=== PATIENT | female | born 1965 | race Caucasian/White ===

== ENCOUNTER 2020-04-15 13:53 | Observation (INO) ==
--- NOTE | 2020-04-15 15:08 | XRay Report ---
XR chest 1V portable CLINICAL HISTORY: hypertension COMPARISON STUDY: No previous studies for comparison. FINDINGS: The cardiac and mediastinal contours are normal. There is no evidence of focal pulmonary co nsolidation. There is no evidence of failure. No pleural effusions are visualized.[ IMPRESSION: No active disease in the chest. ACT 112: Negative or not required by law. Electronically signed by: Alex Copeland M.D. 04/15/2020 3:07 PM
[2020-04-15 15:13] LABS: Partial Thromboplastin Ratio 0.9; Partial Thromboplastin Time 25.1 Seconds (21.0-31.0); Prothrombin Time 10.2 Seconds (9.0-12.0)
[2020-04-15 15:16] LABS: Basophils # (auto) 0.07 K/uL (0-0.2); Basophils % (auto) 1.1 %; Eosinophils # (auto) 0.15 K/uL (0-0.5); Eosinophils % (auto) 2.5 %; Hematocrit (blood only) 41.6 % (37-47); Hemoglobin 14.4 g/dL (12.0-16.0); Immature Granulocytes # (auto) 0.01 K/uL (0.00-0.02); Immature Granulocytes % (auto) 0.2 %; Lymphocytes # (auto) 1.41 K/uL (1.2-3.4); Lymphocytes % (auto) 23.1 %; Mean Corpuscular Hemoglobin 34.6 pg (25-34); Mean Corpuscular Hgb Conc 34.6 g/dL (32-36); Mean Platelet Volume 10.1 fL (7.4-10.4); Monocytes # (auto) 0.57 K/uL (0.11-0.59); Monocytes % (auto) 9.3 %; Neutrophils % (auto) 63.8 %; Platelet Count 200 K/uL (130-400); RDW Coefficient of Variation 11.9 % (11.5-14.5); RDW Standard Deviation 43.6 fL (36.4-46.3); Red Blood Count 4.16 M/uL (4.2-5.4); White Blood Count 6.11 K/uL (4.8-10.8)
[2020-04-15 15:27] LABS: Alanine Aminotransferase 25 U/L (12-78); Albumin Level 3.9 gm/dl (3.4-5.0); Aspartate Aminotransferase 12 U/L (15-37); BUN Creatinine Ratio 13.4 (10-20); Blood Urea Nitrogen 12 mg/dl (7-18); Calcium 9.3 mg/dl (8.5-10.1); Carbon Dioxide 30 mmol/L (21-32); Chloride 103 mmol/L (98-107); Creatinine Clr Calc Pharmacy 83.3 ml/min; Est GFR (African American) 82.4; Est GFR (Non-African American) 71.1; Glucose 95 mg/dl (70-99); Potassium 3.8 mmol/L (3.5-5.1); Sodium 137 mmol/L (136-145)
[2020-04-15 15:32] LABS: Alkaline Phosphatase 87 U/L (45-117); Bilirubin,Total 0.4 mg/dl (0.2-1); Globulin 3.8 gm/dl (2.5-4.0); Total Protein 7.7 gm/dl (6.4-8.2); Troponin I < 0.015 ng/ml (0-0.045)
[2020-04-15] MEDS ORDERED: NITROGLYCERIN 2% OINTMENT 30GM TUBE EXT STA (15:41)
[2020-04-15] MEDS ORDERED: ASPIRIN 81 MG CHEW PO STA (15:41)
--- NOTE | 2020-04-15 15:44 | Emergency Department Note ---
History of Present Illness General Chief complaint: Hypertension Stated complaint: ELEVATED BLOOD PRESSURE Time Seen by Provider: 04/15/20 15:35 Source: patient History of Present Illness Provider complaint: Chest tightness Onset (ago): hour(s) Location: chest Radiation: non-radiation Severity: mild Pain Consistency: + constant Current Pain Intensity: 1 Quality: + other (Tightness) Exacerbated By: + none Associated symptoms: no cough, no diaphoresis, no fever/chills, no headaches, no nausea/vomiting, no shortness of breath and no syncope This is a 54-year-old female presents with chest tightness starting around noon today. The patient states that it is a tightness in the middle of her chest. She currently rates it a 1 out of 10 in severity. It is been constant since noon. She does state that she exercises and she has never had this chest tightness in the past. She was at her therapist's office and they also noted that her blood pressure was very high. She does state that she has a history of whitecoat hypertension but has noted that when she takes her blood pressures at home they tend to be on the high side with a systolic in the 130s. It sometimes goes up to 160. She denies any associated headache, fever, cough or cold symptoms, shortness of breath, diaphoresis, abdominal pain, vomiting or diarrhea. She is not having any symptoms consistent with COVID-19 but states that she had preop testing recently as she is having a hysterectomy. She does have a family history of heart disease and her brother at age 60 of a heart attack. Her father has a history of heart disease as well. Home Medications Home Medications Medication Instructions Recorded Confirmed Type multivitamin 1 tab PO QAM 04/11/19 04/15/20 History betamethasone dipropionate 0.05 % 1 appln TOP BID #45 gm 02/25/20 04/15/20 Rx topical cream tretinoin 1 appln TOP Q OTHER DAY PRN 04/15/20 04/15/20 History vortioxetine [Trintellix] 5 mg PO QAM 04/15/20 04/15/20 History Allergies Allergy/AdvReac Type Severity Reaction Status Date / Time No Known Allergies Allergy Verified 04/15/20 17:04 Past Med/Surg History Medical History Anemia Stable Depression In the process of getting under control Ovarian cyst White coat syndrome with diagnosis of hypertension Surgical History History of hand surgery x3, cyst> 2 TO LEFT, 1 TO RIGHT History of tooth extraction Family History Father Dementia Heart disease Hypertension Myocardial infarction Brother Heart disease Myocardial infarction Denies family history of Colon cancer Ovarian cancer Prostate cancer Breast cancer Social History Smoking Status: Never smoker Second Hand Exposure: No; Hx Alcohol Use: Yes Alcohol type: wine Hx Substance Use: No Preferred Language: Afghan Communication Ability: Effective Visual Impairment: No Limitations Hearing Ability: Normal Register Clerk Required: No Beliefs That Will Affect Care: None marital status: Current Living Situation: Spouse current occupational status: employed 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 Feels Safe at Home: Yes Childhood Exposure to Second-Hand Smoke: No Dental Care, Regularly: Yes Physical Activity Frequency: 5-6 Times per Week Assistive Devices: Glasses Review of Systems See HPI for pertinent positives & negatives. and A total of 10 systems reviewed and were otherwise negative Physical Exam Vital Signs Vital Signs - 24 hr 04/15/20 14:10 04/15/20 15:34 04/15/20 15:35 Temperature 37.1 C Temperature Source Oral Pulse Rate 97 H 93 H Pulse Rate [Left Finger] 93 H Respiratory Rate 18 26 H 20 Blood Pressure 207/124 H 193/116 H Blood Pressure [Left Arm] 193/116 H Blood Pressure Mean 151 152 Blood Pressure Mean [Left Arm] 141 Pulse Oximetry 98 98 Oxygen Delivery Method Room Air Sepsis Recent Fever Within 48 Hours No Sepsis New/Unexplained Change in Mental Status N/A Sepsis Action Taken by Nursing No Action Required 04/15/20 15:38 04/15/20 15:40 04/15/20 15:50 Temperature Temperature Source Pulse Rate 92 H 91 H 83 Pulse Rate [Left Finger] Respiratory Rate 24 16 15 Blood Pressure Blood Pressure [Left Arm] Blood Pressure Mean Blood Pressure Mean [Left Arm] Pulse Oximetry Oxygen Delivery Method Sepsis Recent Fever Within 48 Hours Sepsis New/Unexplained Change in Mental Status Sepsis Action Taken by Nursing 04/15/20 16:00 04/15/20 16:10 04/15/20 16:18 Temperature Temperature Source Pulse Rate 82 83 84 Pulse Rate [Left Finger] Respiratory Rate 17 15 19 Blood Pressure 191/109 H Blood Pressure [Left Arm] Blood Pressure Mean 146 Blood Pressure Mean [Left Arm] Pulse Oximetry Oxygen Delivery Method Sepsis Recent Fever Within 48 Hours Sepsis New/Unexplained Change in Mental Status Sepsis Action Taken by Nursing 04/15/20 16:20 04/15/20 16:30 04/15/20 16:40 Temperature Temperature Source Pulse Rate 84 81 81 Pulse Rate [Left Finger] Respiratory Rate 16 15 19 Blood Pressure Blood Pressure [Left Arm] Blood Pressure Mean Blood Pressure Mean [Left Arm] Pulse Oximetry Oxygen Delivery Method Sepsis Recent Fever Within 48 Hours Sepsis New/Unexplained Change in Mental Status Sepsis Action Taken by Nursing 04/15/20 16:50 04/15/20 17:00 04/15/20 17:10 Temperature Temperature Source Pulse Rate 81 86 85 Pulse Rate [Left Finger] Respiratory Rate 16 16 21 Blood Pressure 176/111 H Blood Pressure [Left Arm] Blood Pressure Mean 134 Blood Pressure Mean [Left Arm] Pulse Oximetry Oxygen Delivery Method Sepsis Recent Fever Within 48 Hours Sepsis New/Unexplained Change in Mental Status Sepsis Action Taken by Nursing 04/15/20 17:20 Temperature Temperature Source Pulse Rate 82 Pulse Rate [Left Finger] Respiratory Rate 13 Blood Pressure Blood Pressure [Left Arm] Blood Pressure Mean Blood Pressure Mean [Left Arm] Pulse Oximetry Oxygen Delivery Method Sepsis Recent Fever Within 48 Hours Sepsis New/Unexplained Change in Mental Status Sepsis Action Taken by Nursing Constitutional: Vital signs reviewed. Eyes: Pupils are equal round reactive to light. Conjunctiva are noninjected. ENT: Pharynx is clear without erythema or exudate. Mucous membranes are moist. Neck supple without meningeal signs. Respiratory: Clear to auscultation bilaterally. Breath sounds are equal bilaterally. Cardiovascular: Regular rate and rhythm. No rubs or gallops. GI: Soft, nondistended and nontender. Bowel sounds are present. Musculoskeletal: No peripheral edema. No lower extremity tenderness. Integumentary: No cyanosis. or jaundice. Neurological: The patient is awake and alert. No focal deficits. Psychiatric: Normal affect. Not anxious appearing. Course Administered Medications Discontinued Medications Aspirin (Aspirin 81 Mg Chew) 324 mg PO NOW STA Stop: 04/15/20 15:42 Last Admin: 04/15/20 16:22 Dose: 324 mg Documented by: [id number] Nitroglycerin (Nitroglycerin 2% Ointment 30gm Tube) 1 inch EXT NOW STA Stop: 04/15/20 15:42 Last Admin: 04/15/20 16:22 Dose: 1 inch Documented by: [id number] Medical Decision Making Differential Diagnosis Hypertensive emergency, hypertension, unstable angina, [place], GERD, anxiety Medical Records Attestation: I reviewed the patient's medical records. I did perform a limited focused review of portions of the patient's old chart on the electronic medical record. The patient has had no recent pertinent visits to this hospital. She was seen by her director records management 2 weeks ago for hysterectomy preop. Home Medications Current Medication List: was personally reviewed by me Laboratory Data Attestation: I reviewed the patient's lab results. Result diagrams: 04/15/20 14:38 04/15/20 14:38 Lab Results 04/15/20 04/15/20 04/15/20 Range/Units 14:38 14:38 14:38 WBC 6.11 (4.8-10.8) K/uL RBC 4.16 L (4.2-5.4) M/uL Hgb 14.4 (12.0-16.0) g/dL Hct 41.6 (37-47) % MCV 100.0 (80-100) fL MCH 34.6 H (25-34) pg MCHC 34.6 (32-36) g/dL RDW Std Deviation 43.6 (36.4-46.3) fL RDW Coeff of Marielle 11.9 (11.5-14.5) % Plt Count 200 (130-400) K/uL MPV 10.1 (7.4-10.4) fL Immature Gran % (Auto) 0.2 % Neut % (Auto) 63.8 % Lymph % (Auto) 23.1 % [place] % (Auto) 9.3 % Eos % (Auto) 2.5 % Baso % (Auto) 1.1 % Neut # (Auto) 3.90 (1.4-6.5) K/uL Lymph # (Auto) 1.41 (1.2-3.4) K/uL [place] # (Auto) 0.57 (0.11-0.59) K/uL Eos # (Auto) 0.15 (0-0.5) K/uL Baso # (Auto) 0.07 (0-0.2) K/uL Immature Gran # (Auto) 0.01 (0.00-0.02) K/uL PT 10.2 (9.0-12.0) Seconds INR 1.0 (0.9-1.1) APTT 25.1 (21.0-31.0) Seconds PTT Ratio 0.9 Sodium 137 (136-145) mmol/L Potassium 3.8 (3.5-5.1) mmol/L Chloride 103 (98-107) mmol/L Carbon Dioxide 30 (21-32) mmol/L Anion Gap 4.0 (3-11) BUN 12 (7-18) mg/dl Creatinine 0.92 (0.6-1.2) mg/dl Est Cr Clr Drug Dosing 83.3 ml/min Est GFR ( Amer) 82.4 Est GFR (Non-Af Amer) 71.1 BUN/Creatinine Ratio 13.4 (10-20) Glucose 95 (70-99) mg/dl Calcium 9.3 (8.5-10.1) mg/dl Total Bilirubin 0.4 (0.2-1) mg/dl AST 12 L (15-37) U/L ALT 25 (12-78) U/L Alkaline Phosphatase 87 (45-117) U/L Troponin I < 0.015 (0-0.045) ng/ml Total Protein 7.7 (6.4-8.2) gm/dl Albumin 3.9 (3.4-5.0) gm/dl Globulin 3.8 (2.5-4.0) gm/dl Albumin/Globulin Ratio 1.0 (0.9-2) Imaging Data Radiologist's Impression: XR chest 1V portable CLINICAL HISTORY: hypertension COMPARISON STUDY: No previous studies for comparison. FINDINGS: The cardiac and mediastinal contours are normal. There is no evidence of focal pulmonary consolidation. There is no evidence of failure. No pleural effusions are visualized.[ IMPRESSION: No active disease in the chest. ACT 112: Negative or not required by law. Electronically signed by: Alex Copeland M.D. 04/15/2020 3:07 PM Dictated: 04/15/20 1507 Transcribed: 04/15/20 1507 ECG Data Attestation: I personally reviewed and interpreted this ECG as follows: Indication: + chest pain Rate (beats per minute): 92 Rhythm: + normal sinus ECG [place]: + Normal ECG ST segments: no ST elevation ECG Findings: no PVCs Blood Pressure Blood Pressure Findings: Elevated blood pressure Blood Pressure Disposition: Referred to patients primary care provider MDM Narrative I did evaluate the patient as noted above. The patient is currently presenting with elevated blood pressures and chest tightness. She is currently having 1 out of 10 pain. She was given nitroglycerin paste 1 inch to the anterior chest wall. IV access was established. I did place an order for continuous cardiac monitoring. The monitor showed normal sinus rhythm at a rate of 92 bpm. I did order and personally review the patient's 12-lead EKG as described above. She has no acute ischemic changes. I did order and personally reviewed the images of the patient's chest x-ray as described above. There is no evidence of acute infiltrate. I did order and review the patient's blood work as noted in the electronic medical record. She has no leukocytosis or anemia. Her electrolytes are unremarkable. Troponin is negative. I did treat her with aspirin p.o. She was also given nitroglycerin paste. On reassessment her blood pressure is improved but still elevated and her chest pain is now resolved. I did discuss the test results with the patient. I did recommend hospitalization for repeat cardiac biomarkers and further evaluation. I did discuss the case with the spitalist and watch caser. Impression & Plan Hypertensive crisis, Acute chest pain Discharge Plan Visit Data Chief Complaint: Hypertension Stated Complaint: ELEVATED BLOOD PRESSURE ED Provider: Lonnie Boston Discharge Problem: Hypertensive crisis, Acute chest pain Patient Disposition: Being Evaluated by Hospitalist Forms Stand Alone Forms: My [facility] [employer] Prescriptions Prescriptions: No Action betamethasone dipropionate 0.05 % cream 1 appln TOP BID Qty: 45 RF: 1 multivitamin [One-A-Day Essential] tablet 1 tab PO QAM RF: 0 Trintellix 5 mg Tablet 5 mg PO QAM RF: 0 tretinoin 0.025 % cream 1 appln TOP Q OTHER DAY PRN (Reason: Acne) RF: 0 Referrals Referrals: Tal Mejía MD [Primary Care Provider] -
--- NOTE | 2020-04-15 17:46 | History & Physical Report ---
Date of Service April 15, 2020 Assessment & Plan (1) Hypertensive urgency: Start lisinopril 10 mg p.o. daily, f/u BMP in 4 weeks. Continue nitroglycerin 1 Inch Patch overnight - remove if sBP < 100. (2) Chest pain: Suspect secondary to hypertensive urgency. Serial troponins to rule out NSTEMI. Due to upcoming surgery recommend exercise stress echo prior to discharge. N.p.o. after midnight. Admission and Anticipated Discharge Date Admission Date: April 15, 2020 History of Present Illness Chief Complaint: Chest pain, hypertension Primary Care Provider: Tal Mejía MD Tarsha Edwards is a 54 year old female who presents to the ER due to chest tightness and hypertension. Chest tightness started around noon today, as it was mild she went about her usual activities. No worse on exertion. substernal. No associated diaphoresis, shortness of breath or nausea. No radiation. No exacerbating factors. Never had a similar pain in the past. Lasted until she was placed on nitro patch in the ER. She had appointment with her psychologist at 1:20pm and her BP measured at 170/100, did not improve with resting therefore was advised to go to the ER for further evaluation. Historically she has had a labile blood pressure with suspected white coat hypertension as home monitoring was normal and has not been treated with antihypertensives. Decades ago she had syncopal episodes related to hot showers suspected due to vasodilation, however she has not experienced any hypotension episodes in decades. Frequently she will walk her dog for > 1 mile without chest pains or shortness of breath on exertion previously. No fevers, chills, cough, sore throat, loss of taste or smell, or known COVID-19 exposure. Allergies Allergy/AdvReac Type Severity Reaction Status Date / Time No Known Allergies Allergy Verified 04/15/20 17:04 Home Medications Home Medications Medication Instructions Recorded Confirmed Type multivitamin 1 tab PO QAM 04/11/19 04/15/20 History betamethasone dipropionate 0.05 % 1 appln TOP BID #45 gm 02/25/20 04/15/20 Rx topical cream tretinoin 1 appln TOP Q OTHER DAY PRN 04/15/20 04/15/20 History vortioxetine [Trintellix] 5 mg PO QAM 04/15/20 04/15/20 History Past Med/Surg History Medical History Anemia Stable Depression In the process of getting under control Ovarian cyst White coat syndrome with diagnosis of hypertension Surgical History History of hand surgery x3, cyst> 2 TO LEFT, 1 TO RIGHT History of tooth extraction Family History Father Dementia Heart disease Hypertension Myocardial infarction Brother Heart disease Myocardial infarction Denies family history of Colon cancer Ovarian cancer Prostate cancer Breast cancer Social History Smoking Status: Never smoker Second Hand Exposure: No; Do You Dip or Chew Tobacco: No; Hx Alcohol Use: Yes Alcohol type: wine Hx Substance Use: No Preferred Language: Polish Communication Ability: Effective Visual Impairment: No Limitations Hearing Ability: Normal Laborer Filter Plant Required: No Beliefs That Will Affect Care: None marital status: Current Living Situation: Spouse current occupational status: employed 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 Other Information That Helps Us Care for You: No Feels Safe at Home: Yes Safety Concerns: Feels Safe At This Time Childhood Exposure to Second-Hand Smoke: No Dental Care, Regularly: Yes Physical Activity Frequency: 5-6 Times per Week Assistive Devices: Glasses Review of Systems Review of Systems: All systems reviewed & are unremarkable except as noted in HPI & below Upcoming hysterectomy planned for Monday. Physical Exam Constitutional: well developed and well nourished; no acute distress Eyes: + anicteric sclerae; normal pupil size Neck: trachea midline, no thyromegaly Respiratory: normal respiratory effort, lungs clear to auscultation Cardiovascular: RRR, no murmur, no edema Gastrointestinal (Abdomen): normal bowel sounds, soft, nontender, no hepatosplenomegaly Musculoskeletal: no cyanosis or clubbing, extremities motor strength 5/5 Skin: no rashes, warm and dry Neurologic: moves all extremities and awake; not confused Psychiatric: A+Ox3, euthymic affect Results & Data Results & Data ([facility]) Vital Signs (Past 12 Hours) Vital Signs Temp Pulse Pulse Resp BP BP Pulse Ox 04/15/20 17:20 82 13 09/30/20 17:10 85 21 04/15/20 17:00 86 16 176/111 H 04/15/20 16:50 81 16 04/15/20 16:40 81 19 04/15/20 16:30 81 15 04/15/20 16:20 84 16 04/15/20 16:18 84 19 191/109 H 04/15/20 16:10 83 15 04/15/20 16:00 82 17 04/15/20 15:50 83 15 04/15/20 15:40 91 H 16 04/15/20 15:38 92 H 24 04/15/20 15:35 93 H 20 193/116 H 98 04/15/20 15:34 93 H 26 H 193/116 H 04/15/20 14:10 37.1 C 97 H 18 207/124 H 98 Code Status & VTE Plan Code Status Full VTE Prophylaxis Plan VTE Prophylaxis will be ordered: No PG Care Time/CCT Total # of Minutes Spent Total Time Spent with Patient: Total time spent is greater than 50% in coordination of care (as documented) at patient's floor/unit and/or counseling patient: Coding Level of Care Code 12873 OBS Care - Level 3 Diagnoses Hypertensive urgency I16.0 Chest pain R07.9
[2020-04-15] MEDS ORDERED: ONDANSETRON INJ 2 MG/ML 2 ML VIAL IV PRN (20:21)
[2020-04-15] MEDS ORDERED: lisinopriL 10 MG TAB PO ONE (20:32)
[2020-04-15] MEDS: NITROGLYCERIN 2% OINTMENT 30GM TUBE EXT SCH (21:29)
[2020-04-15] MEDS: ACETAMINOPHEN 325 MG TAB PO PRN (23:49)
[2020-04-16] MEDS: NITROGLYCERIN 2% OINTMENT 30GM TUBE EXT SCH ×3 (03:40→11:41)
[2020-04-16] MEDS: ACETAMINOPHEN 325 MG TAB PO PRN ×2 (03:43→08:40)
--- NOTE | 2020-04-16 06:17 | Electrocardiogram Report ---
Test Reason : Blood Pressure : / mmHG Vent. Rate : 092 BPM Atrial Rate : 092 BPM P-R Int : 188 ms QRS Dur : 100 ms QT Int : 378 ms P-R-T Axes : 077 079 064 degrees QTc Int : 467 ms Normal sinus rhythm Normal ECG No previous ECGs available Confirmed by Jayro Santacruz ([id number]) on 04/16/2020 6:17:17 AM Referred By: REFERRED SELF Confirmed By:Jayro Santacruz
[2020-04-16] MEDS ORDERED: lisinopriL 10 MG TAB PO SCH (09:00)
[2020-04-16] MEDS ORDERED: MULTIVITAMIN TAB PO SCH (09:00)
--- NOTE | 2020-04-16 14:22 | XCELERA ---
[id number]
[2020-04-16] MEDS ORDERED: AMLODIPINE BESYLATE 5 MG TAB PO ONE (15:18)
--- NOTE | 2020-04-16 22:47 | Discharge Summary ---
Date of Service April 16, 2020 Admission HPI Per Admitting Provider Tarsha Edwards is a 54 year old female who presents to the ER due to chest tightness and hypertension. Chest tightness started around noon today, as it was mild she went about her usual activities. No worse on exertion. substernal. No associated diaphoresis, shortness of breath or nausea. No radiation. No exacerbating factors. Never had a similar pain in the past. Lasted until she was placed on nitro patch in the ER. She had appointment with her psychologist at 1:20pm and her BP measured at 170/100, did not improve with resting therefore was advised to go to the ER for further evaluation. Historically she has had a labile blood pressure with suspected white coat hypertension as home monitoring was normal and has not been treated with antihypertensives. Decades ago she had syncopal episodes related to hot showers suspected due to vasodilation, however she has not experienced any hypotension episodes in decades. Frequently she will walk her dog for > 1 mile without chest pains or shortness of breath on exertion previously. No fevers, chills, cough, sore throat, loss of taste or smell, or known COVID-19 exposure. Principal Diagnosis non cardiac chest pain/ hypertensive urgency Discharge Exam Constitutional: well developed and well nourished; no acute distress Eyes: + anicteric sclerae; normal pupil size Neck: trachea midline, no thyromegaly Respiratory: normal respiratory effort, lungs clear to auscultation Cardiovascular: RRR, no murmur, no edema Gastrointestinal (Abdomen): normal bowel sounds, soft, nontender, no hepatosplenomegaly Musculoskeletal: no cyanosis or clubbing, extremities motor strength 5/5 Skin: no rashes, warm and dry Neurologic: moves all extremities and awake; not confused Psychiatric: A+Ox3, euthymic affect Discharge Data Allergies Allergy/AdvReac Type Severity Reaction Status Date / Time No Known Allergies Allergy Verified 04/15/20 17:04 Consultations 04/15/20 16:43 ED Decision to Admit Stat Procedures Performed Operation Date: 04/17/20 07:30 <No data on this case meets the specified criteria> Hospital Course (1) Hypertensive urgency: Patient had an epsiode of over 200/120 BP on admission. This improved with lisinopril 10 mg p.o. daily, added amlodipine to PM dose which improved BP o 159/102. Patient is asymptomatic and is agreeabl to discharge (2) Chest pain: Suspect secondary to hypertensive urgency. Serial troponins to rule out NSTEMI. This was negative. Due to upcoming surgery recommend exercise stress echo prior to discharge. Stress test was also negative. Given the atypical nature, constant chest pain, pain at rest, and negative stress test on tread mill, it is unlikely patient has coronary artery disease that would lead to an AK. Total Time Total Time Spent Total Time Spent (In Minutes): 32 Total Time Includes: Examination of the Patient, Discharge Planning and Medication Reconciliation Discharge Plan Discharge Items Patient Disposition: Home - Self-Care Reason For Visit: CHEST PAIN RULE OUT AK Discharge Diagnosis: Hypertensive urgency Activity: Resume your previous activity Non-emergency contact: Primary Care Provider Call non-emergency contact if: you have any medication questions Follow-up/Referrals: Tal Mejía MD [Primary Care Provider] - Diet: Regular and Low Sodium (2gm) Addtl Attending Provider Instructions: You had a negative cardiac stress test. You will followup with your PCP in 1-2 weeks. Tomorrow you will have surgery, we will have your discharge summary ready for the surgical team to assess. Start your medication tomorrow. Pending Studies at Discharge: No Stand-Alone Forms: My [facility] [employer], Smoking Cessation Medications and DC Order Prescriptions: New lisinopril 10 mg Tablet 10 mg PO QAM Qty: 30 RF: 0 amlodipine 5 mg tablet 5 mg PO PM Qty: 30 RF: 0 Continued betamethasone dipropionate 0.05 % cream 1 appln TOP BID Qty: 45 RF: 1 multivitamin [One-A-Day Essential] tablet 1 tab PO QAM RF: 0 Trintellix 5 mg Tablet 5 mg PO QAM RF: 0 tretinoin 0.025 % cream 1 appln TOP Q OTHER DAY PRN (Reason: Acne) RF: 0 Discharge Orders: Discharge Order (Routine); Ordered 04/16/20 Ordered By: Cyrus George Admission Data Admit Date/Time: 04/15/20 17:21 Attending Provider: Cyrus George Admit Provider: Yusef Garcia Primary Care Provider: Tal Mejía V. Other Providers: Yusef Garcia Other Interventions: Discharge Summary Assessment (RN) Last Done: 04/16/20 19:11 Coding Level of Care Code 00526 OBS Care - Discharge Diagnoses Hypertensive urgency I16.0 Chest pain R07.9
[2020-04-17] MEDS ORDERED: ePHEDrine sulfate 50 MG/ML AMP IV PRN (07:12)
[2020-04-17] MEDS ORDERED: ATROPINE SULFATE 0.1 MG/ML 10ML SYR IV PRN (07:12)
[2020-04-17] MEDS ORDERED: fentaNYL citrate 100 MCG/2 ML VIAL IV PRN (07:12)
[2020-04-17] MEDS ORDERED: PROMETHAZINE HCL 12.5 MG in SODIUM CHLORIDE 0.9% 50 ML IV PRN (07:12)
[2020-04-17] MEDS ORDERED: HYDROmorphone INJ 2 MG/ML SYR/VIAL IV PRN (07:12)
[2020-04-17] MEDS ORDERED: ONDANSETRON INJ 2 MG/ML 2 ML VIAL IV PRN (07:12)
--- NOTE | 2020-04-17 07:12 | Anesthesiology Consultation ---
Date of Service April 17, 2020 Assessment & Plan ASA ASA3 Proposed Anesthesia Anesthesia Type: General Risk / Benefits Reviewed With: PT / POA / Parent / Guardian, Accepts Plan and Informed Consent Obtained Additional Comments: i reviewed her cardiac work up including echo History Surgery Operation Date: 04/17/20 07:30 Proposed Procedures p Robotic Total Laparoscopic Hysterectomy - Hussein Vazquez MD Height/Weight Height: 5 ft 8 in Weight: 89.6 kg Allergies Allergy/AdvReac Type Severity Reaction Status Date / Time No Known Allergies Allergy Verified 04/17/20 06:45 Medications Home Medications Medication Instructions Recorded Confirmed Last Taken multivitamin 1 tab PO QAM 04/11/19 04/17/20 04/16/20 10:00 betamethasone dipropionate 0.05 % 1 appln TOP BID #45 gm 02/25/20 04/15/20 04/15/20 topical cream Trintellix 5 mg PO QAM 04/15/20 04/17/20 04/15/20 07:45 tretinoin 1 appln TOP Q OTHER DAY PRN 04/15/20 04/17/20 04/14/20 amlodipine 5 mg PO PM #30 tab 04/16/20 04/17/20 04/16/20 16:00 lisinopril 10 mg PO QAM #30 tab 04/16/20 04/17/20 04/17/20 05:30 NPO Date Last Intake of Fluids: 04/17/20 Time Last Intake of Fluids: 00:00 Date Last Intake of Solids: 04/17/20 Time Last Intake of Solids: 00:00 Past Medical History Medical History Acute chest pain Anemia Stable Depression In the process of getting under control Hypertensive crisis Ovarian cyst White coat syndrome with diagnosis of hypertension Exercise / Class Metabolic Activity II 4-5 Yardwork/Stairs/Walk up hill Past Family History Family History Father Dementia Heart disease Hypertension Myocardial infarction Brother Heart disease Myocardial infarction Denies family history of Colon cancer Ovarian cancer Prostate cancer Breast cancer Past Surgical History Surgical History History of hand surgery x3, cyst> 2 TO LEFT, 1 TO RIGHT History of tooth extraction Past Anesthesia History No Hx of Anesthesia Complications and Other mother get ponv and [place] History of PONV No Hx of PONV and No Hx of Motion Sickness Social History Smoking Status: Never smoker Do You Dip or Chew Tobacco: No Hx Alcohol Use: Yes Alcohol type: wine alcohol intake frequency: a few times a week Hx Substance Use: No substance use type: does not use Review of Systems denies fever/cough/ colds/ chest pain/ SOB/ AZALIA recent cp work up that was negative Constitutional: no fever and no chills Respiratory: no cough and no dyspnea denies AZALIA Cardiovascular: no chest pain and no dyspnea on exertion Physical Exam Vital Signs Last Vital Signs Temp 36.7 C 04/16/20 19:11 Pulse 73 04/16/20 19:11 Resp 20 04/16/20 19:11 BP 159/102 H 04/16/20 19:11 Pulse Ox 96 04/16/20 19:11 ENMT Mouth: no TMJ abnormality and no dentition abnormality Thyromental Distance: > or= 3.5 Finger Breadths Mallampati Class: II Neck neck extension not limited Respiratory normal respiratory effort; no respiratory distress Auscultation: lungs clear to auscultation bilaterally Cardiovascular Rate/Rhythm: regular rate and regular rhythm Neurologic moves all extremities Psychiatric Orientation: alert and oriented x 3 Testing Laboratory Results 04/15/20 14:38 04/15/20 14:38 PT 10.2 Seconds (9.0-12.0) 04/15/20 14:38 INR 1.0 (0.9-1.1) 04/15/20 14:38 APTT 25.1 Seconds (21.0-31.0) 04/15/20 14:38
--- NOTE | 2020-04-17 07:26 | History & Physical Bridge Note ---
Date of Service April 17, 2020 History & Physical Bridge Note I have examined the patient, reviewed the History & Physical and in the interval since the performance of the History & Physical I have noted the following changes of clinical significance: no changes noted
== END 2020-04-16 19:28 | disposition home or self-care (01) ==
LOC: ED 13:53 → 2N 13:53 → SUATTDRO 17:21 → 2N 19:00 → 2W 04-16 10:53

== ENCOUNTER 2020-04-17 05:55 | Observation (INO) ==
--- NOTE | 2020-03-27 16:00 | PAT Medication Instructions ---
Medication Instructions Date of Service March 27, 2020 Home Medications Medication Instructions Recorded betamethasone dipropionate 0.05 % 1 appln TOP BID #45 gm 02/25/20 topical cream tretinoin 0.025 % topical cream 1 appln TOP Q OTHER DAY #45 gm 02/25/20 lorazepam 0.5 mg tablet 0.5 mg PO DAILY PRN #2 tab 03/11/20 multivitamin 1 tab PO QAM betamethasone dipropionate 0.05 % topical cream 1 appln TOP BID tretinoin 0.025 % topical cream 1 appln TOP Q OTHER DAY lorazepam 0.5 mg tablet 0.5 mg PO DAILY PRN fluoxetine 10 mg PO QAM STOP taking 24 hours before surgery betamethasone dipropionate 0.05 % topical cream 1 appln TOP BID tretinoin 0.025 % topical cream 1 appln TOP Q OTHER DAY DO NOT take the morning of surgery multivitamin 1 tab PO QAM Take morning of surgery With a small sip of water, OTHERWISE NOTHING TO EAT OR DRINK AFTER MIDNIGHT: lorazepam 0.5 mg tablet 0.5 mg PO DAILY PRN (if needed) fluoxetine 10 mg PO QAM Other Notes If you have any questions please call us at [phone] or [phone] or [phone] or [phone]
--- NOTE | 2020-03-31 14:42 | Anesthesiology Consultation ---
Date of Service March 31, 2020 Assessment & Plan (1) Encounter for pre-operative examination: Chart Review Chart Review: Acceptable Risk for Surgery (pending preop Covid testing results ) and Patient seen in Pre Admission Testing - Check test AM DOS Per PAT appt on 03/31/20, patient denies any recent travel. No known Covid positive contacts or Covid related symptoms. Educated patient to follow up with surgeon's office regarding Covid testing. Educated on importance of self quarantining, social distancing and wearing mask in public both for the patient and household contacts. Teaching & Discussion Pre-Anesthesia Teaching/Discussion Notes: Instructed NPO after midnight before surgery,except medications with 15 cc of water. Medication instructions p rovided according to the PAT guidelines. History Surgery Operation Date: 04/17/20 07:30 Proposed Procedures p Robotic Total Laparoscopic Hysterectomy - Hussein Vazquez MD Height/Weight Height: 5 ft 8 in Weight: 90.4 kg Allergies Allergy/AdvReac Type Severity Reaction Status Date / Time No Known Allergies Allergy Verified 03/31/20 13:08 Medications Home Medications Medication Instructions Recorded Confirmed Last Taken multivitamin 1 tab PO QAM 04/11/19 03/31/20 Unknown betamethasone dipropionate 0.05 % 1 appln TOP BID #45 gm 02/25/20 03/31/20 Unknown topical cream tretinoin 0.025 % topical cream 1 appln TOP Q OTHER DAY #45 gm 02/25/20 03/31/20 Unknown lorazepam 0.5 mg tablet 0.5 mg PO DAILY PRN #2 tab 03/11/20 03/31/20 Unknown fluoxetine 10 mg PO QAM 03/27/20 03/31/20 Unknown Past Medical History Medical History Anemia Stable Depression In the process of getting under control Ovarian cyst White coat syndrome with diagnosis of hypertension Exercise / Class Metabolic Activity II 4-5 Yardwork/Stairs/Walk up hill (one flight of stairs - no chest pain or SOB) Past Family History Family History Father Dementia Heart disease Hypertension Myocardial infarction Brother Heart disease Myocardial infarction Denies family history of Colon cancer Ovarian cancer Prostate cancer Breast cancer Past Surgical History Surgical History History of hand surgery x3, cyst> 2 TO LEFT, 1 TO RIGHT History of tooth extraction Past Anesthesia History No Hx of Anesthesia Complications and No Family Hx of Anesthesia Complications (with exception to mother- PONV and headaches ) History of PONV No Hx of PONV and No Hx of Motion Sickness Social History Smoking Status: Never smoker Do You Dip or Chew Tobacco: No Hx Alcohol Use: Yes Alcohol type: wine alcohol intake frequency: 0-2 drinks per day (1 glass of wine ) Hx Substance Use: No substance use type: does not use Review of Systems Patient denies chest pain, shortness of breath, dyspnea on exertion, reflux, cough, wheezing, palpitations. No hx of seizures, stroke, MA, apnea/snoring. No hx of blood clots or blood transfusions Physical Exam Vital Signs VITALS BP 167/108 (pt states usually under better control- currently following with PCP and monitoring at home) P 95 TEMP 98.8 SP02 97% RESP 16 Constitutional no acute distress ENMT Mouth: no TMJ clicking Thyromental Distance: < 3.5 Finger Breadths (3.0) Mallampati Class: II Missing molars Neck neck extension not limited Respiratory normal respiratory effort; no respiratory distress Auscultation: lungs clear to auscultation bilaterally; no wheezes Cardiovascular Rate/Rhythm: regular rate and regular rhythm Heart Sounds: no murmur Vessels: no carotid bruit Musculoskeletal Spine: no pain with cervical ROM Neurologic moves all extremities Psychiatric Orientation: alert Testing Laboratory Results Blood Type A Positive 03/31/20 14:57 Antibody Screen NEGATIVE 03/31/20 14:57 03/06/20= WBC: 6.89 H/H: 13.3/39.1 PLATELETS: 219 SODIUM: 135 POTASSIUM: 3.7 CHLORIDE: 102 CO2: 26 BUN: 8 CREATININE: 0.79 GLUCOSE: 85 Electrocardiogram Date: 01/09/20 Findings: + NSR @ (68) Normal EKG.
[2020-04-17] MEDS ORDERED: LACTATED RINGER'S 1,000 ML IV SCH (06:00)
[2020-04-17] MEDS ORDERED: CEFAZOLIN 2000MG 2,000 MG/15 ML SYR IV SCH (06:00)
[2020-04-17] MEDS ORDERED: LR 15ML/HR IV SCH (06:00)
[2020-04-17] MEDS ORDERED: ROCURONIUM BROMIDE 10 MG/ML 5 ML VIAL IV ONE (06:50)
[2020-04-17] MEDS ORDERED: LIDOCAINE HCL 2% 2 ML VIAL/AMP(20MG/ML) INFIL ONE (06:50)
[2020-04-17] MEDS ORDERED: ONDANSETRON INJ 2 MG/ML 2 ML VIAL ONE (06:50)
[2020-04-17] MEDS ORDERED: MIDAZOLAM HCL 1 MG/ML 2ML VIAL ONE (06:50)
[2020-04-17] MEDS ORDERED: fentaNYL citrate 100 MCG/2 ML VIAL ONE ×3 (06:50→10:30)
[2020-04-17] MEDS ORDERED: PROPOFOL IV EMULSION 10 MG/ML 20 ML VIAL IV ONE (06:50)
[2020-04-17 06:54] LABS: Basophils # (auto) 0.05 K/uL (0-0.2); Basophils % (auto) 0.9 %; Eosinophils # (auto) 0.22 K/uL (0-0.5); Eosinophils % (auto) 4.1 %; Hematocrit (blood only) 39.2 % (37-47); Hemoglobin 13.4 g/dL (12.0-16.0); Immature Granulocytes # (auto) 0.01 K/uL (0.00-0.02); Immature Granulocytes % (auto) 0.2 %; Lymphocytes # (auto) 1.24 K/uL (1.2-3.4); Mean Corpuscular Hemoglobin 34.4 pg (25-34); Mean Corpuscular Volume 100.8 fL (80-100); Mean Platelet Volume 9.7 fL (7.4-10.4); Monocytes # (auto) 0.55 K/uL (0.11-0.59); Monocytes % (auto) 10.2 %; Neutrophils # (auto) 3.33 K/uL (1.4-6.5); Neutrophils % (auto) 61.6 %; Platelet Count 174 K/uL (130-400); RDW Standard Deviation 43.7 fL (36.4-46.3); Red Blood Count 3.89 M/uL (4.2-5.4)
[2020-04-17] MEDS ORDERED: BUPIVACAINE 0.5 % 5 MG/1 ML MPF 30ML VIAL ONE (06:55)
[2020-04-17 06:56] LABS: Mean Corpuscular Hgb Conc 34.2 g/dL (32-36)
[2020-04-17] MEDS ORDERED: DEXAMETHASONE SOD INJ 4 MG/ML VIAL ONE (07:52)
[2020-04-17] MEDS ORDERED: TISSEEL FIBRIN SEALANT 4ML TOP ONE (08:45)
[2020-04-17] MEDS ORDERED: NEOSTIGMINE METHYLSULFATE 5 MG/5 ML SYR ONE (09:49)
[2020-04-17] MEDS ORDERED: GLYCOPYRROLATE 0.2 MG/ML VIAL ONE (09:49)
[2020-04-17] MEDS ORDERED: KETOROLAC 30 MG/ML VIAL ONE (09:54)
--- NOTE | 2020-04-17 10:13 | Post Operative Brief Note ---
PG Immediate Post Op with CF Date of Surgery April 17, 2020 Pre & Post Diagnosis Operation Date: 04/17/20 07:30 Pre-Op Diagnosis: Menorrhagia Post-Op Diagnosis: Menorrhagia I identified the patient and participated in the time-out.: Yes Procedure Operation Date: 04/17/20 07:30 Actual Procedures p Robotic Assisted Total Laparoscopic Hysterectomy with Bilateral Salpingo- Oopherectomy, and Cystoscopy. (Not Applicable) - Hussein Vazquez MD Surgeon Hussein Vazquez MD Crossing [place] None Estimated Blood Loss 15 Findings Consistent with Post-Op Diagnosis Specimens Specimen Description: A. Uterus, cervix, and Bilateral fallopian tubes and ovaries Drains Payton Catheter (18Fr. Payton catheter inserted by Dr. Vazquez without difficulty. Draining clear yellow urine. Anesthesia to monitor urine output. )
[2020-04-17] MEDS ORDERED: KETOROLAC 30 MG/ML VIAL IV PRN (10:27)
[2020-04-17] MEDS ORDERED: OXYCODONE/ACETAMINOPHEN 5mg/325mg TAB PO PRN ×2 (10:27)
[2020-04-17] MEDS ORDERED: SIMETHICONE 80 MG CHEW PO PRN (10:27)
[2020-04-17] MEDS ORDERED: ONDANSETRON INJ 2 MG/ML 2 ML VIAL IV PRN ×2 (10:27→10:47)
[2020-04-17] MEDS ORDERED: IBUPROFEN 600 MG TAB PO PRN (10:27)
[2020-04-17] MEDS ORDERED: ACETAMINOPHEN 325 MG TAB PO PRN (10:27)
[2020-04-17] MEDS: fentaNYL citrate 100 MCG/2 ML VIAL IV PRN ×2 (10:29→10:34)
[2020-04-17] MEDS ORDERED: ePHEDrine sulfate 50 MG/ML AMP IV PRN (10:47)
[2020-04-17] MEDS ORDERED: PROMETHAZINE HCL 12.5 MG in SODIUM CHLORIDE 0.9% 50 ML IV PRN (10:47)
[2020-04-17] MEDS ORDERED: HYDROmorphone INJ 2 MG/ML SYR/VIAL IV PRN (10:47)
[2020-04-17] MEDS ORDERED: ATROPINE SULFATE 0.1 MG/ML 10ML SYR IV PRN (10:47)
--- NOTE | 2020-04-17 11:25 | Anesthesiology Progress Note ---
Date of Service April 17, 2020 Anesthesia Post Procedure Vital Signs Vital Signs: Temp Pulse Pulse Resp BP Pulse Ox 04/17/20 11:10 36.4 C L 68 16 122/78 98 04/17/20 11:00 36.4 C L 70 16 117/76 95 04/17/20 10:50 72 16 119/79 94 04/17/20 10:40 65 16 146/87 H 100 04/17/20 10:30 69 16 147/94 H 100 04/17/20 10:23 36.3 C L 72 16 146/90 H 100 04/17/20 06:50 36.8 C 82 18 151/97 H 97 Transfer of Care Handoff Completed per policy Notes Mental Status: alert / awake / arousable and participated in evaluation Patient Amnestic to Procedure: Yes Nausea / Vomiting: adequately controlled Pain: adequately controlled Airway Patency, RR, SpO2: stable & adequate BP & HR: stable & adequate Hydration State: stable & adequate Anesthetic Complications: no major complications apparent and Pt Satisfied with anesthetic care
--- NOTE | 2020-04-17 14:44 | Operative Report (OR) ---
DATE OF OPERATION: 04/17/2020 PROCEDURE: Total robotic-assisted laparoscopic hysterectomy, bilateral salpingo-oophorectomy and cystoscopy. SURGEON: Hussein Vazquez MD PREOPERATIVE DIAGNOSES: 1. Abnormal uterine bleeding. 2. Large fibroid uterus. POSTOPERATIVE DIAGNOSES: Same status post procedure. ESTIMATED BLOOD LOSS: 15 mL. DRAINS: Payton catheter. FLUIDS: Continuous lactated ringer. URINE OUTPUT: Per Payton catheter. COMPLICATIONS: None. FINDINGS: There is noted to be an enlarged fibroid uterus multiple 1-3 cm size fibroids throughout the uterus, bilateral ovaries were normal-appearing. The abdomen and pelvis was noted to have minimal adhesive disease, grossly normal-appearing throughout. There is noted to be bilateral ureteral efflux and intact bladder on cystoscopy at the completion of the case. DESCRIPTION OF PROCEDURE: The patient was taken to the operating room after consents were ensured. Upon presentation, she was properly identified. General endotracheal anesthesia was obtained without difficulty. The patient was then prepped and draped in normal sterile fashion. A preprocedural timeout was performed. A Payton catheter was then placed. A speculum was placed in the vagina. Cervix visualized. Single tooth tenaculum was placed on the superior aspect of the cervix. A TARGET BRAZILare uterine manipulator was then placed per tosser specifications without issue and the speculum and tenaculum were removed. The laparoscopic portion of the case was then initiated. A 12 mm incision was made on the superior aspect of the umbilicus. A Veress needle was inserted through the incision. Abdomen was insufflated to 15 mmHg. There was noted to be symmetric abdominal rise, tympany of liver and opening pressure of approximately 4 mmHg, all consistent with appropriate intra-abdominal insufflation. A 12 mm optically guided trocar was then introduced through the incision and immediate inspection was noted for atraumatic entry. 8 mm incisions were made in the right and left lower quadrants and left upper quadrant and 8 mm trocars were placed under direct visualization with atraumatic entry noted. The robotic portion of the case was then initiated. The robot was docked per tosser's specifications. The left round ligament was then identified, serially cauterized and dissected. The decision was made to take the ovary separate from the uterus, cervix and the uteroovarian ligament was identified, serially cauterized and dissected including the tube back to the level of the round ligament. A bladder flap was then started on the left side transitioning towards the right. The posterior peritoneum was also removed from the left broad ligament down to the level of the uterine vessels and dissecting the broad ligament all the way down to the level of the uterine vessels. The right round ligament was identified, serially cauterized and dissected. The right uteroovarian vessels were then serially cauterized and dissected and this was carried back to the level of the round ligament, transecting the fallopian tube near the cornua. The anterior bladder flap was then continued connecting with the bladder flap initiated from the left side. The broad ligament was then serially dissected in the avascular portion down to the level of the uterine vessels. The bladder was then dissected off the lower uterine segment and cervix until VCare uterine manipulator cup was distinctly noted. The uterine vessels were then serially cauterized as the right and left uterine vessels were then serially cauterized and dissected and the colpotomy was then started anteriorly and continued circumferentially around the cervix, freeing the cervix from the vagina. The uterus was then delivered through the hysterotomy without difficulty. The right and left IP ligaments were then identified. The ureters were noted to be quite distal to the IP ligaments and they were serially cauterized and dissected the ovary from the IP ligaments bilaterally. The fallopian tubes and ovaries were then delivered through the colpotomy. The vaginal cuff was then closed with continuous running locked V-Loc suture. There was noted to be excellent hemostasis. The abdomen was suction irrigated and 4 mL of Tisseel was distributed throughout all raw edges and pedicles. The decision was made to end the laparoscopic portion of the case and the abdomen was desufflated. The patient was taken out of Trendelenburg position and a cystoscopy was performed. There was noted to be bilateral ureteral efflux and intact bladder on cystoscopy. The fascia at the umbilicus was then reapproximated with 0 Vicryl interrupted stitch. All skin incisions were reapproximated with 4-0 Vicryl in interrupted stitch in a subcuticular fashion. 12 mL of Lidocaine were distributed throughout the 4 incisions and Dermabond was placed on top of all incisions. The patient was then awoken from anesthesia and taken to recovery room in stable condition. Needle, sponge and instrument counts were correct at the completion of the case. The patient was in stable condition and taken to the recovery area. I attest to the content of the Intraoperative Record and any orders documented therein. Any exception s are noted below.
[2020-04-17] MEDS ORDERED: DOCUSATE SODIUM 100 MG CAP PO SCH (21:00)
--- NOTE | 2020-04-18 21:29 | Discharge Summary (DS) ---
HOSPITAL COURSE: The patient was admitted for a total laparoscopic hysterectomy, bilateral salpingo-oophorectomy and cystoscopy. Procedures were performed without difficulty. The patient recovered in house in approximately 4 hours, at which time she was meeting all requirements for discharge and was discharged home in stable condition. The patient had no issues or concerns arise during her recovery or hospital course. She was provided both written and verbal discharge instructions and is scheduled to follow up in 2 weeks for care. The patient was instructed to call if any issues arose prior.
== END 2020-04-17 15:00 | disposition home or self-care (01) ==
LOC: 4N 05:55 → ASU 05:55
DX: D25.9 Leiomyoma of uterus, unspecified; N93.9 Abnormal uterine and vaginal bleeding, unspecified; F32.9 Major depressive disorder, single episode, unspecified; N72 Inflammatory disease of cervix uteri; N92.0 Excessive and frequent menstruation with regular cycle

== ENCOUNTER 2020-10-22 05:29 | Inpatient (IN) ==
[2020-10-22] MEDS ORDERED: HEPARIN SOD 5,000 UNIT/0.5 ML VIAL SQ SCH (06:00)
[2020-10-22] MEDS ORDERED: ceFAZolin 2000MG 2,000 MG/15 ML SYR IV SCH (06:00)
[2020-10-22] MEDS ORDERED: LR 15ML/HR IV SCH (06:00)
[2020-10-22] MEDS ORDERED: NEOSTIGMINE METHYLSULFATE 5 MG/5 ML SYR ONE (06:30)
[2020-10-22] MEDS ORDERED: MIDAZOLAM HCL 1 MG/ML 2ML VIAL ONE (06:30)
[2020-10-22] MEDS ORDERED: PROPOFOL IV EMULSION 10 MG/ML 20 ML VIAL IV ONE ×2 (06:30→08:52)
[2020-10-22] MEDS ORDERED: LIDOCAINE HCL 2% 2 ML VIAL/AMP(20MG/ML) INFIL ONE (06:30)
[2020-10-22] MEDS ORDERED: ROCURONIUM BROMIDE 10 MG/ML 5 ML VIAL IV ONE ×6 (06:30→08:11)
[2020-10-22] MEDS ORDERED: GLYCOPYRROLATE 0.2 MG/ML VIAL ONE (06:30)
[2020-10-22] MEDS ORDERED: fentaNYL citrate 100 MCG/2 ML VIAL ONE ×3 (06:30→09:27)
[2020-10-22] MEDS ORDERED: ONDANSETRON INJ 2 MG/ML 2 ML VIAL ONE (06:30)
[2020-10-22] MEDS ORDERED: DEXAMETHASONE SOD INJ 4 MG/ML VIAL ONE (06:30)
--- NOTE | 2020-10-22 06:44 | Anesthesiology Consultation ---
Date of Service October 22, 2020 Assessment & Plan Chart Review Chart Review: Acceptable Risk for Surgery Consults Requested none History Surgery Operation Date: 10/22/20 07:00 Proposed Procedures p Laparoscopic-Assised Colon Resection - Carlton Baron DO Height/Weight Height: 5 ft 8 in Weight: 87.634 kg Allergies Allergy/AdvReac Type Severity Reaction Status Date / Time No Known Allergies Allergy Verified 10/22/20 05:59 Medications Home Medications Medication Instructions Recorded Confirmed Last Taken multivitamin 1 tab PO QAM 04/11/19 10/22/20 10/21/20 10:00 tretinoin 1 appln TOP Q OTHER DAY PRN 04/15/20 10/22/20 10/20/20 vortioxetine 5 mg tablet 20 mg PO QPM tab 05/08/20 10/22/20 10/20/20 23:00 lisinopril 30 mg PO QAM 09/01/20 10/22/20 10/21/20 10:00 Active Medications Generic Name Dose Route Start Last Admin Trade Name Freq PRN Reason Stop Dose Admin Heparin Sodium (Porcine) 5,000 units 10/22/20 06:00 10/22/20 06:02 Heparin Sod 5,000 Unit/0.5 Ml Vial SQ 10/22/20 18:00 5,000 units PREOP ELENA Administration Lactated Ringer's 1,000 mls @ 15 mls/hr 10/22/20 06:00 10/22/20 06:02 Lr IV 10/23/20 05:59 15 mls/hr .Q24H ELENA Administration NPO Date Last Intake of Fluids: 10/21/20 Time Last Intake of Fluids: 23:59 Date Last Intake of Solids: 10/20/20 Time Last Intake of Solids: 23:59 Past Medical History Medical History Anemia HX OF - NO CURRENT ISSUES Depression CONTROLLED History of hypertensive crisis APR 2020 HTN (hypertension) Malignant neoplasm of colon White coat syndrome with diagnosis of hypertension CONTROLLED ON BP MEDICATION PER PT Past Family History Family History Father Dementia Heart disease Hypertension Myocardial infarction Brother Heart disease Myocardial infarction Denies family history of Colon cancer Ovarian cancer Prostate cancer Breast cancer Past Surgical History Surgical History History of colonoscopy History of hand surgery x3, cyst> 2 TO LEFT, 1 TO RIGHT HAND SURGERY MAR 2020 History of hysterectomy 04/17/2020 History of tooth extraction Social History Smoking Status: Never smoker Do You Dip or Chew Tobacco: No Hx Alcohol Use: Yes Alcohol type: wine alcohol intake frequency: a few times a week Hx Substance Use: No substance use type: does not use Physical Exam Vital Signs Last Vital Signs Temp 36.9 C 10/22/20 06:09 Pulse 74 10/22/20 06:09 Resp 18 10/22/20 06:09 BP 146/95 H 10/22/20 06:09 Pulse Ox 98 10/22/20 06:09
[2020-10-22] MEDS ORDERED: METOCLOPRAMIDE HCL INJ 5 MG/ML 2 ML VIAL IV PRN (06:45)
[2020-10-22] MEDS ORDERED: ePHEDrine sulfate 50 MG/ML AMP IV PRN (06:45)
[2020-10-22] MEDS ORDERED: ONDANSETRON INJ 2 MG/ML 2 ML VIAL IV PRN (06:45)
[2020-10-22] MEDS ORDERED: ATROPINE SULFATE 0.1 MG/ML 10ML SYR IV PRN (06:45)
[2020-10-22] MEDS ORDERED: PROMETHAZINE HCL 12.5 MG in SODIUM CHLORIDE 0.9% 50 ML IV PRN (06:45)
--- NOTE | 2020-10-22 06:53 | History & Physical Bridge Note ---
Date of Service October 22, 2020 History & Physical Bridge Note I have examined the patient, reviewed the History & Physical and in the interval since the performance of the History & Physical I have noted the following changes of clinical significance: no changes noted
[2020-10-22] MEDS ORDERED: BUPIVACAINE/EPINEPHRINE 0.5% MPF 1:200,000 30 ML VIAL ONE (07:00)
[2020-10-22] MEDS: fentaNYL citrate 100 MCG/2 ML VIAL IV PRN ×2 (09:41→09:46)
--- NOTE | 2020-10-22 09:43 | Post Operative Brief Note ---
PG Immediate Post Op with CF Date of Surgery October 22, 2020 Pre & Post Diagnosis Operation Date: 10/22/20 07:00 Pre-Op Diagnosis: Adenocarcinoma, Colon Post-Op Diagnosis: Adenocarcinoma, Colon I identified the patient and participated in the time-out.: Yes Procedure Operation Date: 10/22/20 07:00 Actual Procedures p Laparoscopic- sigmoid Colon Resection(Not Applicable) - Carlton Baron DO Surgeon Carlton Baron DO Ground Instructor Advanced Dr. Miguel Machado Estimated Blood Loss 10 Findings Consistent with Post-Op Diagnosis Specimens Specimen Description: A. Sigmoid colon B. Additional distal margin Drains Perez Catheter (16 fr perez catheter inserted by Claudio Salomon RN prior to sta rt of procedure) and Khadar-Willett Drain (10mm flat drain)
[2020-10-22] MEDS: HYDROmorphone INJ 2 MG/ML SYR/VIAL IV PRN ×3 (09:51→10:01)
--- NOTE | 2020-10-22 11:47 | Operative Report ---
PG Post Operative Report Pre & Post Diagnosis Operation Date: 10/22/20 07:00 Pre-Op Diagnosis: Adenocarcinoma, Colon Post-Op Diagnosis: Adenocarcinoma, Colon; adhesions I identified the patient and participated in the time-out.: Yes Procedure Operation Date: 10/22/20 07:00 Actual Procedures p Laparoscopic-Assised Colon Resection, enterolysis(Not Applicable) - Carlton Baron DO Surgeon Carlton Baron DO Manager Training And Development Dr. Miguel Machado ( second surgeon) Estimated Blood Loss 10 Findings Consistent with Post-Op Diagnosis Specimens sigmoid colon distal margin Description of Procedure After informed consent was obtained the patient was taken to the operating room and placed in supine position. After successful intubation a Payton catheter was placed and the patient was placed in the low lithotomy position. The perineum, rectum and entire abdomen was sterilely prepped and draped in usual fashion. Both arms had previously been tucked. I began with a supraumbilical incision with 11 blade scalpel. This was carried down through the soft tissue using cautery. The anterior rectus fascia was opened using cautery and two #0 Vicryl stay sutures were placed. Peritoneum was elevated with hemostats and incised under direct vision using a Metzenbaum scissor. A finger sweep was performed. A 12 mm Perez trocar was placed and the abdomen was insufflated to 20 mmHg. The laparoscope was inserted and the abdomen was examined in 360 degrees. A right lower quadrant 12 mm trocar a right mid abdominal 5 mm trocar and eventually a left lower quadrant 5 mm trocar were all placed under direct vision. The patient was placed in a Trendelenburg position and slightly air planed to the left. Initially we did not see the tattoo gilmar. I began by mobilizing the sigmoid and left colon along the white line of Toldt using blunt dissection and small amounts of harmonic scalpel. As we took the white line down to the peritoneal reflection I was then able to identify the tattoo gilmar. The sigmoid colon was adhesed to the bladder. I had to take this down using blunt dissection and small amounts of harmonic scalpel. This then released a large redundant portion of sigmoid colon which would make the resection easier. After fully mobilizing the left colon and sigmoid colon I then made a small window in the mesentery of the sigmoid colon. I carried this distally to at least 5-7 cm distal to the tattoo gilmar. I was able to identify the right and left ureters to keep them out of harm's way. After creating a window I was then able to use a COURTNEY purple cartridge linear stapler 60 mm to transect the sigmoid colon distal to the tattoo marking. We then used the harmonic scalpel to take down the mesentery of the sigmoid colon staying as low as possible to incorporate lymph nodes. We carried this proximally until we were at least 7 to 8 cm proximal to the marking. Next we extended the left lower quadrant trocar incision. We open the fascia, toweled of the incision and were able to deliver the sigmoid colon out through it without difficulty. We placed a bowel clamp on the proximal portion of the bowel, transected it and passed the specimen off to go to pathology. It appeared as though we had good margins on either side of the tattoo gilmar. Next we used sizers to estimate the lumen size to be 28 mm. 2-0 silk was used to do a handsewn pursestring. The anvil of a 28 mm circular stapler was advanced into the lumen and secured using the pursestring suture. The bowel/anvil were then placed back into the abdominal cavity. The fascia was closed using 0 PDS in a running fashion. At this point we changed our gloves. We then reinsufflated the abdomen. The anvil laid over the pelvic brim next to the rectal stump easily without any tension. We then used sizers to come up through the rectum followed by the handle of the EEA. The spike was deployed bringing the spike out anterior to the staple line on the rectal stump. The anvil was connected to the handle, they were secured together and fired creating a functional end-to-end anastomosis. Both donuts were intact. We sent the distal donut as a distal margin. Next we reinsufflated the anastomosis under water and it was in fact airtight. We thoroughly irrigated the pelvis. There was adequate hemostasis. A 10 flat Khadar-Willett drain was placed into the pelvis and brought out through the right lower quadrant trocar site. It was secured to the skin using 0 Vicryl. A final look around the abdomen showed no other gross abnormalities. There was no gross evidence of lymphadenopathy. The liver was pristine with no evidence of metastatic disease. All the peritoneal surfaces were normal as well. All the trochars were removed and the abdomen was desufflated. The fascia of the camera port was closed using 0 Vicryl in [id number] fashion. All the wounds were irrigated thoroughly. The larger incision was closed using 3-0 Vicryl for deep layers and 4-0 Monocryl for skin. The smaller incisions were closed using 4-0 Monocryl. Marcaine with epinephrine were injected around the incisions for postoperative analgesia and skin glue used as a dressing. The patient was awakened, extubated and transferred to recovery in stable condition. I did not have any adequate physician learning support assistant or first officer and flight instructor therefore my partner Dr. Machado assisted throughout the case. He was instrumental in running the camera as well as helping to retract throughout my dissection as well as assisting with the anastomosis. I attest to the content of the Intraoperative Record and any orders documented therein. Any exceptions are noted below.
--- NOTE | 2020-10-22 11:50 | Anesthesiology Progress Note ---
Date of Service October 22, 2020 Anesthesia Post Procedure Vital Signs Vital Signs: Temp Pulse Pulse Resp BP BP Pulse Ox 10/22/20 11:27 36.4 C L 74 16 111/64 95 10/22/20 10:25 68 15 109/67 100 10/22/20 10:15 36.7 C 62 15 106/63 99 10/22/20 10:05 84 13 112/63 100 10/22/20 09:55 59 L 12 112/68 100 10/22/20 09:45 62 11 L 122/73 100 10/22/20 09:35 36.2 C L 73 18 122/78 100 10/22/20 06:09 36.9 C 74 18 146/95 H 98 Pain Intensity Abdomen: Pain Intensity: 2 Transfer of Care Handoff Completed per policy Notes Mental Status: alert / awake / arousable and participated in evaluation Patient Amnestic to Procedure: Yes Nausea / Vomiting: adequately controlled Pain: adequately controlled Airway Patency, RR, SpO2: stable & adequate BP & HR: stable & adequate Hydration State: stable & adequate Anesthetic Complications: no major complications apparent
[2020-10-22] MEDS: LACTATED RINGER'S 1,000 ML IV SCH ×2 (14:32→21:43)
[2020-10-22] MEDS: ceFAZolin 2000MG 2,000 MG/15 ML SYR IV SCH ×2 (15:48→21:43)
[2020-10-22] MEDS: HYDROmorphone INJ 0.5 MG/0.5 ML SYR IV PRN ×2 (18:22→23:04)
[2020-10-22] MEDS: ONDANSETRON INJ 2 MG/ML 2 ML VIAL IV PRN (23:10)
[2020-10-23] MEDS: HYDROmorphone INJ 0.5 MG/0.5 ML SYR IV PRN ×4 (02:38→22:49)
[2020-10-23] MEDS: LACTATED RINGER'S 1,000 ML IV SCH ×3 (05:07→20:18)
[2020-10-23] MEDS: ceFAZolin 2000MG 2,000 MG/15 ML SYR IV SCH (05:07)
--- NOTE | 2020-10-23 09:03 | Anesthesiology Progress Note ---
Date of Service October 23, 2020 Anesthesia Post Procedure Vital Signs Vital Signs: Temp Pulse Pulse Resp BP Pulse Ox 10/23/20 07:35 37.1 C 70 18 112/69 94 10/23/20 02:35 37.1 C 80 16 124/68 90 10/22/20 23:06 36.9 C 83 16 147/84 H 92 10/22/20 19:34 37.2 C 86 16 112/65 91 10/22/20 14:29 36.3 C L 80 16 104/65 98 10/22/20 12:58 37 C 88 16 99/58 L 97 10/22/20 11:52 36.8 C 90 16 119/73 96 10/22/20 11:27 36.4 C L 74 16 111/64 95 10/22/20 10:25 68 15 109/67 100 10/22/20 10:15 36.7 C 62 15 106/63 99 10/22/20 10:05 84 13 112/63 100 10/22/20 09:55 59 L 12 112/68 100 10/22/20 09:45 62 11 L 122/73 100 10/22/20 09:35 36.2 C L 73 18 122/78 100 Pain Intensity Abdomen: Pain Intensity: 2 Notes Mental Status: alert / awake / arousable and participated in evaluation Patient Amnestic to Procedure: Yes Nausea / Vomiting: adequately controlled Pain: adequately controlled Airway Patency, RR, SpO2: stable & adequate BP & HR: stable & adequate Hydration State: stable & adequate Anesthetic Complications: no major complications apparent
--- NOTE | 2020-10-23 10:17 | Surgery Progress Note ---
Date of Service October 23, 2020 Assessment & Plan (1) Adenocarcinoma, colon: POD 1 laparoscopic sigmoid colectomy doing as expected pain control adequate will keep perez one more day ice chips only today Dr. Green dental front office assistant this weekend. Admission and Anticipated Discharge Date Admission Date: October 22, 2020 Subjective pt seen. doing well. pain a 2/10. Physical Exam Physical Exam: alert. appear comfortable/nad abd: soft. ANTONINO serous. incisions look good/no drainage Results & Data ([facility]) Vital Signs (Past 12 Hours) Vital Signs Temp Pulse Resp BP Pulse Ox 10/23/20 07:35 37.1 C 70 18 112/69 94 10/23/20 02:35 37.1 C 80 16 124/68 90 10/22/20 23:06 36.9 C 83 16 147/84 H 92 PG Care Time/CCT Total # of Minutes Spent Total Time Spent with Patient: Total time spent is greater than 50% in coordination of care (as documented) at patient's floor/unit and/or counseling patient: Coding Level of Care Code None Diagnoses Adenocarcinoma, colon C18.9
[2020-10-23] MEDS: IBUPROFEN 600 MG TAB PO PRN (15:30)
[2020-10-23] MEDS ORDERED: [UNRECOGNIZED DRUG - OTHER] SCH (16:00)
[2020-10-23] MEDS: VORTIOXETINE HYDROBROMIDE PO SCH (20:26)
[2020-10-23] MEDS: ONDANSETRON INJ 2 MG/ML 2 ML VIAL IV PRN (22:56)
[2020-10-24] MEDS: LACTATED RINGER'S 1,000 ML IV SCH ×2 (05:05→14:39)
--- NOTE | 2020-10-24 07:48 | Surgery Progress Note ---
Date of Service October 24, 2020 Assessment & Plan (1) Adenocarcinoma, colon: POD 2 laparoscopic sigmoid colectomy start virginie d/c ana Green saw also this AM Admission and Anticipated Discharge Date Admission Date: October 22, 2020 Subjective no nausea, pain only when moving Physical Exam Gastrointestinal (Abdomen): Inspection/Auscultation: + abdominal surgical incision (dry); abdomen not distended Percussion/Palpation: abdomen soft Results & Data ([facility]) Vital Signs (Past 12 Hours) Vital Signs Temp Pulse Resp BP Pulse Ox 10/24/20 07:20 37.1 C 80 16 125/75 95 10/23/20 22:44 37.3 C 78 14 147/80 H 94 PG Care Time/CCT Total # of Minutes Spent Total Time Spent with Patient: Total time spent is greater than 50% in coordination of care (as documented) at patient's floor/unit and/or counseling patient: Coding Level of Care Code None Diagnoses Adenocarcinoma, colon C18.9
[2020-10-24 08:37] LABS: Basophils # (auto) 0.02 K/uL (0-0.2); Basophils % (auto) 0.3 %; Eosinophils # (auto) 0.36 K/uL (0-0.5); Eosinophils % (auto) 5.9 %; Hematocrit (blood only) 29.3 % (37-47); Hemoglobin 10.6 g/dL (12.0-16.0); Immature Granulocytes # (auto) 0.01 K/uL (0.00-0.02); Immature Granulocytes % (auto) 0.2 %; Lymphocytes # (auto) 0.91 K/uL (1.2-3.4); Lymphocytes % (auto) 14.8 %; Mean Corpuscular Hemoglobin 34.4 pg (25-34); Mean Corpuscular Hgb Conc 36.2 g/dL (32-36); Mean Corpuscular Volume 95.1 fL (80-100); Mean Platelet Volume 10.2 fL (7.4-10.4); Monocytes # (auto) 0.62 K/uL (0.11-0.59); Monocytes % (auto) 10.1 %; Neutrophils # (auto) 4.23 K/uL (1.4-6.5); Neutrophils % (auto) 68.7 %; Platelet Count 143 K/uL (130-400); RDW Coefficient of Variation 11.8 % (11.5-14.5); RDW Standard Deviation 40.6 fL (36.4-46.3); Red Blood Count 3.08 M/uL (4.2-5.4); White Blood Count 6.15 K/uL (4.8-10.8)
[2020-10-24 08:38] LABS: BUN Creatinine Ratio 14.7 (10-20); Calcium 8.8 mg/dl (8.5-10.1); Creatinine Clr Calc Pharmacy 111.2 ml/min; Est GFR (African American) 115.5; Est GFR (Non-African American) 99.7; Potassium 3.6 mmol/L (3.5-5.1)
[2020-10-24] MEDS: ENOXAPARIN INJ 40 MG/0.4 ML SYR SQ SCH (09:34)
[2020-10-24] MEDS: IBUPROFEN 600 MG TAB PO PRN ×2 (13:14→21:13)
[2020-10-24] MEDS: VORTIOXETINE HYDROBROMIDE PO SCH (21:13)
[2020-10-25] MEDS: LACTATED RINGER'S 1,000 ML IV SCH ×2 (02:09→14:40)
--- NOTE | 2020-10-25 05:23 | Surgery Progress Note ---
Date of Service October 25, 2020 Assessment & Plan (1) Adenocarcinoma, colon: Postop day #3 sigmoid colectomy secondary to adenocarcinoma Surgical pathology is pending Maintain on clear liquids until improved bowel function has improved Continue IV fluids until oral intake is reliable Increase ambulation Continue analgesics Continue antiemetics Continue use of incentive spirometer Lovenox is in place for DVT prevention Admission and Anticipated Discharge Date Admission Date: October 22, 2020 Supervising Physician Co-Signing Physician Notes As per Charan Machado physician engineering assistant Patient resting comfortably minimal abdominal discomfort passing flatus no bowel movement yet Miguel drainage serosanguineous more serous than sanguinous Path pending We will keep patient here until her bowel function most likely today but certainly by tomorrow Subjective Patient notes she was started on clear liquids yesterday and with this she has not experienced any worsening abdominal pain or nausea or vomiting. She has not had a bowel movement since surgery but says she is passing a considerable amount of flatus. She denies any fevers, shakes, chills, or shortness of breath. She is ambulating small amounts. Physical Exam Gastrointestinal (Abdomen): Abdomen is soft with minimal distention. Bowel sounds are present but hypoactive. There is pain with palpation near surgical incisions. ANTONINO is in place draining serous fluid. Results & Data ([facility]) Vital Signs (Past 12 Hours) Vital Signs Temp Pulse Resp BP Pulse Ox 10/24/20 22:10 37.2 C 75 14 136/83 96 PG Care Time/CCT Total # of Minutes Spent Total Time Spent with Patient: Total time spent is greater than 50% in coordination of care (as documented) at patient's floor/unit and/or counseling patient: Coding Level of Care Code None Diagnoses Adenocarcinoma, colon C18.9
[2020-10-25 06:26] LABS: Basophils # (auto) 0.02 K/uL (0-0.2); Basophils % (auto) 0.3 %; Eosinophils # (auto) 0.35 K/uL (0-0.5); Eosinophils % (auto) 6.1 %; Hematocrit (blood only) 29.1 % (37-47); Hemoglobin 10.5 g/dL (12.0-16.0); Immature Granulocytes # (auto) 0.02 K/uL (0.00-0.02); Immature Granulocytes % (auto) 0.3 %; Lymphocytes # (auto) 1.02 K/uL (1.2-3.4); Lymphocytes % (auto) 17.7 %; Mean Corpuscular Hemoglobin 34.3 pg (25-34); Mean Corpuscular Hgb Conc 36.1 g/dL (32-36); Mean Corpuscular Volume 95.1 fL (80-100); Mean Platelet Volume 10.4 fL (7.4-10.4); Monocytes # (auto) 0.66 K/uL (0.11-0.59); Monocytes % (auto) 11.5 %; Neutrophils # (auto) 3.69 K/uL (1.4-6.5); Neutrophils % (auto) 64.1 %; Platelet Count 144 K/uL (130-400); RDW Coefficient of Variation 12.1 % (11.5-14.5); RDW Standard Deviation 41.9 fL (36.4-46.3); Red Blood Count 3.06 M/uL (4.2-5.4); White Blood Count 5.76 K/uL (4.8-10.8)
[2020-10-25 07:00] LABS: BUN Creatinine Ratio 7.3 (10-20); Calcium 8.4 mg/dl (8.5-10.1); Creatinine Clr Calc Pharmacy 126.3 ml/min; Est GFR (African American) 120.4; Est GFR (Non-African American) 103.9; Potassium 3.5 mmol/L (3.5-5.1)
[2020-10-25] MEDS: ENOXAPARIN INJ 40 MG/0.4 ML SYR SQ SCH (08:47)
[2020-10-25] MEDS: VORTIOXETINE HYDROBROMIDE PO SCH (20:45)
[2020-10-26] MEDS: LACTATED RINGER'S 1,000 ML IV SCH (03:20)
--- NOTE | 2020-10-26 07:44 | Surgery Progress Note ---
Date of Service October 26, 2020 Assessment & Plan (1) Adenocarcinoma, colon: Postop day 4 sigmoid colectomy secondary to adenocarcinoma tolerating diet stop IVF home later today or tomorrow, will remove drain prior to d/c as above. doing well. minimal pain. incisions look good. jesse diet/ bowels moving. ANTONINO serous ok for d/c instructions given path still pending. Admission and Anticipated Discharge Date Admission Date: October 22, 2020 Subjective small liquid BMs, regular dinner Physical Exam Gastrointestinal (Abdomen): Inspection/Auscultation: + abdominal surgical incision (no erythema) and + abdominal surgical drain present (55 cc serous) Percussion/Palpation: abdomen soft Results & Data ([facility]) Vital Signs (Past 12 Hours) Vital Signs Temp Pulse Resp BP Pulse Ox 10/25/20 23:16 37.2 C 88 14 156/94 H 94 PG Care Time/CCT Total # of Minutes Spent Total Time Spent with Patient: Total time spent is greater than 50% in coordination of care (as documented) at patient's floor/unit and/or counseling patient: Coding Level of Care Code None Diagnoses Adenocarcinoma, colon C18.9
[2020-10-26] MEDS: ENOXAPARIN INJ 40 MG/0.4 ML SYR SQ SCH (07:58)
--- NOTE | 2020-10-29 10:08 | Discharge Summary ---
Date of Service October 29, 2020 Principal Diagnosis Colon cancer Discharge Exam Gastrointestinal (Abdomen) Inspection/Auscultation: + abdominal surgical incision (clean, dry, no erythema); abdomen not distended Percussion/Palpation: abdomen soft Discharge Data Allergies Allergy/AdvReac Type Severity Reaction Status Date / Time No Known Allergies Allergy Verified 10/28/20 00:12 Procedures Performed Operation Date: 10/22/20 07:00 Actual Procedures p Laparoscopic-Assised Colon Resection(Not Applicable) - Carlton Baron DO Hospital Course (1) Adenocarcinoma, colon: 55 y/o female with carcinoma of sigmoid polyp was taken to the operating room for laparoscopic sigmoid colon resection and transferred to the surgical floor. Lovenox was used for DVT prophylaxis. Payton was removed on POD 2 and she was also started on clear liquids. She was increasing activity had minimal pain and by day 3 began having bowel movements. By day 4 she was tolerating regular d iet. ANTONINO drain was removed and she was stable for discharge home. Total Time Total Time Spent Total Time Spent (In Minutes): 15 Discharge Plan Discharge Items Patient Disposition: Home - Self-Care Reason For Visit: Colon Cancer Discharge Diagnosis: colon resection Activity: As commented below Lifting: No more than 10 pounds Bathing Comment: ok to shower Driving/Machine Use: Resume 3 days after discharge Non-emergency contact: Surgeon Call non-emergency contact if: you have any medication questions, your pain is not controlled, you have a fever, your temperature is above 101.5 and your wound has increased redness Follow-up/Referrals: Tal Mejía MD [Primary Care Provider] - Carlton Baron DO [Surgeon] - 11/09/20 9:30 am (In 1-2 weeks, call to schedule if you do not already have an appt) Diet: Regular Addtl Attending Provider Instructions: You can take Tylenol or ibuprofen as needed for pain Pending Studies at Discharge: No Stand-Alone Forms: My [employer], Smoking Cessation Medications and DC Order Prescriptions: New hydrocodone-acetaminophen 5-325 mg tablet 1 tab PO Q8H PRN (Reason: pain) Qty: 14 RF: 0 Continued multivitamin [One-A-Day Essential] tablet 1 tab PO QAM RF: 0 lisinopril 20 mg tablet 30 mg PO QAM RF: 0 No Action amoxicillin-pot clavulanate [Augmentin] 875-125 mg tablet 1 tab PO Q12H Qty: 20 RF: 0 Trintellix 20 mg tablet 20 mg PO QPM RF: 0 Discharge Orders: Discharge Order (Routine); Ordered 10/26/20 Ordered By: Carlton Baron Admission Data Admit Date/Time: 10/22/20 09:53 Attending Provider: Carlton Baron Admit Provider: Carlton Baron Primary Care Provider: Tal Mejía V. Other Interventions: Discharge Summary Assessment (RN) Last Done: 10/26/20 12:03 Coding Level of Care Code D/C Day Management <30 mins Diagnoses Adenocarcinoma, colon C18.9
== END 2020-10-26 13:15 | disposition home or self-care (01) | DRG 331 ==
LOC: ASU 05:29 → 3W 09:53